=== PATIENT | female | born 1940 | race Caucasian/White ===

== ENCOUNTER 2017-04-29 09:40 | Inpatient (IN) | payer MEDICARE, OTHER ==
[~2017-04-29] VITALS: Ht 162.6 cm; Wt 63.5 kg
[2017-04-29] MEDS ORDERED: IV NS 0.9% 1,000 ML BAG IV ONE ×2 (10:00→11:00)
--- NOTE | 2017-04-29 10:00 | NUR ---
BIBRA 99 C/O BLACK TARRY STOOL X 2-3 DAYS, PATIENT COMPLAINTS OF ABDOMINAL DISCOMFORT AND GENERALIZED WEAKNESS. PATIENT IS AAO3. APPEARS IN NO APPARENT DISTRESS. HOWEVER PATIENT APPEARS WEAK. AFEBRILE. CONNECTED PT TO TELE MONITOR. VSS
[2017-04-29 10:20] LABS: BASOPHILS # (AUTO) 0.3 /CMM (0.0-0.2); BASOPHILS % (AUTO) 1.3 % (0.0-2.0); EOSINOPHILS % (AUTO) 0.1 % (0.0-6.0); HEMATOCRIT 31 % (33-45); HEMOGLOBIN 10.4 g/dL (11.5-14.8); LYMPHOCYTES # (AUTO) 1.5 /CMM (0.8-4.8); LYMPHOCYTES % (AUTO) 6.2 % (20.0-44.0); MEAN CORPUSCULAR HEMOGLOBIN 31 PG (26.0-33.0); MEAN CORPUSCULAR HGB CONC 33 g/dl (31.0-36.0); MEAN CORPUSCULAR VOLUME 94 fL (82-100); MONOCYTES # (AUTO) 1.8 /CMM (0.1-1.30); MONOCYTES % (AUTO) 7.5 % (2.0-12.0); NEUTROPHILS % (AUTO) 84.9 % (43.0-81.0); PLATELET COUNT (AUTO) 505 /CMM (150-450); RDW COEFFICIENT OF VARIATION 17.2 (11.5-15.0); RED BLOOD CELL COUNT(AUTO) 3.33 MIL/uL (4.0-5.2); WHITE BLOOD COUNT (AUTO) 23.6 K/uL (4.3-11.0)
[2017-04-29 10:33] LABS: INR 1.16 (0.87-1.13); PROTHROMBIN TIME 12.1 SECS (9.5-12.7)
[2017-04-29 10:36] LABS: ALANINE AMINOTRANSFERASE 26 U/L (12-78); ALBUMIN 2.2 g/dL (3.4-5.0); ALKALINE PHOSPHATASE 70 U/L (46-116); ASPARTATE AMINOTRANSFERASE 23 U/L (15-37); BILIRUBIN,TOTAL 0.2 mg/dL (0.2-1.0); CALCIUM, SERUM 9.5 mg/dL (8.5-10.1); CARBON DIOXIDE 17 mmol/L (21-32); CHLORIDE 98 mmol/L (98-107); CREATININE 3.4 mg/dL (0.6-1.3); GLUCOSE 287 mg/dL (74-106); LIPASE 201 U/L (73-393); SODIUM SERUM 134 mmol/L (136-145); TOTAL PROTEIN, SERUM 6.8 g/dL (6.4-8.2)
[2017-04-29 10:37] LABS: POTASSIUM 6.4 mmol/L (3.5-5.1); UREA NITROGEN, BLOOD 149 mg/dL (7-18)
[2017-04-29 10:38] LABS: TROPONIN I 0.073 ng/mL (0.00-0.056)
[2017-04-29] MEDS ORDERED: SODIUM BICARBONATE SYR 50 MEQ/50 ML DISP.SYRIN IV ONE (11:00)
[2017-04-29] MEDS ORDERED: CALCIUM CHLORIDE 1,000 MG/10 ML DISP.SYRIN IV ONE (11:00)
[2017-04-29] MEDS ORDERED: SODIUM BICARBONATE SYR 50 MEQ/50 ML DISP.SYRIN ONE (11:40)
[2017-04-29] MEDS ORDERED: CALCIUM CHLORIDE 1,000 MG/10 ML DISP.SYRIN ONE (11:40)
[2017-04-29] MEDS ORDERED: POLY15DR40 EACHEYE (11:44)
[2017-04-29] MEDS ORDERED: ICOS1CAP PO (11:44)
[2017-04-29] MEDS ORDERED: MEMA10TA PO (11:44)
[2017-04-29] MEDS ORDERED: CYAN1TAB42 PO (11:44)
[2017-04-29] MEDS ORDERED: GABA-532 PO (11:44)
[2017-04-29] MEDS ORDERED: ROSU40TA PO (11:44)
[2017-04-29] MEDS ORDERED: ZOLP5TAB7 PO (11:44)
[2017-04-29] MEDS ORDERED: CLOP75TA2 PO (11:44)
[2017-04-29] MEDS ORDERED: PHEN100C4 PO (11:44)
[2017-04-29] MEDS ORDERED: EZET10TA PO (11:44)
[2017-04-29] MEDS ORDERED: FURO20TA4 PO (11:44)
[2017-04-29] MEDS ORDERED: DEXL60CA3 PO (11:44)
[2017-04-29 11:47] LABS: BAND % (MANUAL) 8 % (0.0-5.0); LYMPHOCYTES % (MANUAL) 6 % (16-48); MONOCYTES % (MANUAL) 9 % (0-11.0); NEUTROPHILS % (MANUAL) 77 (42-76)
[2017-04-29] MEDS ORDERED: IV NS 0.9% 1,000 ML IV PRN (11:51)
[2017-04-29] MEDS ORDERED: MAGNESIUM HYDROXIDE 30 ML UDC PO PRN (12:00)
[2017-04-29] MEDS ORDERED: ONDANSETRON HCL/PF 4 MG/2 ML VIAL IVP PRN (12:00)
[2017-04-29] MEDS ORDERED: ZOLPIDEM TARTRATE 5 MG TABLET PO PRN (12:00)
[2017-04-29] MEDS ORDERED: ACETAMINOPHEN 325 MG TABLET PO PRN (12:00)
[2017-04-29] MEDS ORDERED: HYDROCODONE/APAP 5/325MG 1 EACH TABLET PO PRN (12:00)
[2017-04-29] MEDS ORDERED: MAG HYDROX/AL HYDROX/SIMETH 30 ML UDC PO PRN (12:00)
[2017-04-29] MEDS ORDERED: SODIUM POLYSTYRENE SULFONATE 15 G/60 ML BOTTLE PO ONE (12:00)
[2017-04-29] MEDS ORDERED: SODIUM POLYSTYRENE SULFONATE 15 G/60 ML BOTTLE ONE (12:28)
[2017-04-29 13:35] LABS: APPEARANCE,URINE CLOUDY (CLEAR)
[2017-04-29 13:36] LABS: BILIRUBIN,URINE NEGATIVE (NEGATIVE); BLOOD, URINE 2+ Ery/uL (NEGATIVE); COLOR,URINE YELLOW (YELLOW); KETONES,URINE NEGATIVE (NEGATIVE); LEUKOCYTE ESTERASE ,URINE 3+ (NEGATIVE); NITRITE, URINE NEGATIVE (NEGATIVE); PROTEIN,URINE 1+ mg/dl (NEGATIVE); UGLUCOSE NEGATIVE (NEGATIVE); UROBILINOGEN,URINE 0.2 EU/dL (0.2)
[2017-04-29 13:37] LABS: BACTERIA,URINE 2+ /HPF (None Seen); WBC,URINE TOO NUMEROUS TO COUN /HPF (0-3)
[2017-04-29 13:38] LABS: SQUAMOUS EPITHELIAL CELL,UR Few /HPF (None Seen)
[2017-04-29] MEDS ORDERED: INSULIN REGULAR, HUMAN 100 UNIT/ML 10 ML VIAL ONE (13:44)
[2017-04-29] MEDS ORDERED: DEXTROSE 50%-WATER 50 ML DISP.SYRIN ONE (13:44)
[2017-04-29] MEDS ORDERED: INSULIN REGULAR, HUMAN 100 UNIT/ML 10 ML VIAL IV ONE (14:00)
[2017-04-29] MEDS ORDERED: DEXTROSE 50%-WATER 50 ML DISP.SYRIN IV ONE (14:00)
[2017-04-29] MEDS ORDERED: ASPIRIN 300 MG/SUPP.RECT RC ONE (14:00)
[2017-04-29 14:21] LABS: CALCIUM, SERUM 8.7 mg/dL (8.5-10.1); CARBON DIOXIDE 18 mmol/L (21-32); CHLORIDE 105 mmol/L (98-107); GLUCOSE 280 mg/dL (74-106); POTASSIUM 5.5 mmol/L (3.5-5.1); SODIUM SERUM 138 mmol/L (136-145)
[2017-04-29 14:22] LABS: UREA NITROGEN, BLOOD 139 mg/dL (7-18)
[2017-04-29 14:24] LABS: TROPONIN I 0.194 ng/mL (0.00-0.056)
[2017-04-29] MEDS ORDERED: VANCOMYCIN 1 GM in IV D5W 250 ML IV ONE ×2 (14:30→16:30)
[2017-04-29] MEDS ORDERED: PIPERACILLIN /TAZOBACTAM 3.375 G in IV D5W 50 ML IV ONE (14:30)
[2017-04-29 14:37] LABS: THYROID STIMULATING HORMONE 0.97 uIU/mL (0.358-3.74)
[2017-04-29 14:48] LABS: MAGNESIUM 2.7 mg/dL (1.8-2.4); PHOSPHORUS 7.3 mg/dL (2.5-4.9)
--- NOTE | 2017-04-29 15:42 | NUR ---
REPORT GIVEN TO KAROLINA CARDOZO FOR JULIANNA
[2017-04-29] MEDS ORDERED: PANTOPRAZOLE 40 MG VIAL IV ONE (16:00)
[2017-04-29] MEDS ORDERED: ALBUTEROL FS 2.5 MG/3 ML VIAL.NEB NEB ONE (16:00)
--- NOTE | 2017-04-29 16:01 | NUR ---
SMOOTH ADMISSION FROM ER RECVD REPORT FROM TANA TURCIOS. AAO3. H/O CVA LT SIDED WEAKNESS. SBP 92/50 97.7 100% 113 0/10. BUTTOCK WOUND. WET DIAPER. BED IN LOW LOCKED POSITION. DISCUSSED PLAN W/ FAMILY. CALL LIGHT IN REACH. TELE ST 113. WILL CONT TO MONITOR CLOSELY.
[2017-04-29] MEDS ORDERED: FEE PK DOSING 1 MIN EA MC ONE (16:20)
[2017-04-29] MEDS: PHENYTOIN EXTENDED RELEASE 100 MG CAPSULE PO SCH ×2 (16:35→17:00)
[2017-04-29] MEDS: IV NS 0.9% 1,000 ML IV PRN ×2 (16:42→22:13)
[2017-04-29] MEDS: PIPERACILLIN /TAZOBACTAM 2.25 G in IV D5W 50 ML IV SCH ×2 (16:45→23:37)
[2017-04-29] MEDS: POLYVINYL ALCOHOL 15 ML BOTTLE EACHEYE SCH (16:48)
[2017-04-29] MEDS: Z GUARD REMEDY 2 OZ OINT TP PRN (16:48)
[2017-04-29] MEDS: MEMANTINE HCL 5 MG TABLET PO SCH ×2 (16:51→22:04)
--- NOTE | 2017-04-29 16:54 | NUR ---
HOME MEDS CHECKED W/ SON "FELIPE" WHO WILL LOOK TO SEE IF MEDS ARE AT HOME AND LET US KNOW. .
[2017-04-29] MEDS: [UNRECOGNIZED DRUG - OTHER] PO SCH (17:00)
[2017-04-29] MEDS: CYANOCOBALAMIN PO SCH (17:00)
[2017-04-29] MEDS ORDERED: Icosapent Ethyl (Vascepa) 1 GM PO SCH (17:00)
[2017-04-29] MEDS: PYRIDOXINE PO SCH (17:00)
[2017-04-29 17:15] VITALS: BP 92/50
[2017-04-29 17:52] LABS: HEMATOCRIT 23 % (33-45); HEMOGLOBIN 7.3 g/dL (11.5-14.8); MEAN CORPUSCULAR HEMOGLOBIN 30 PG (26.0-33.0); MEAN CORPUSCULAR HGB CONC 32 g/dl (31.0-36.0); MEAN CORPUSCULAR VOLUME 95 fL (82-100); PLATELET COUNT (AUTO) 340 /CMM (150-450); RED BLOOD CELL COUNT(AUTO) 2.41 MIL/uL (4.0-5.2); WHITE BLOOD COUNT (AUTO) 16.1 K/uL (4.3-11.0)
--- NOTE | 2017-04-29 19:05 | NUR ---
RN CLOSING NOTE PT RESTING COMFORTABLY. SINUS TACHY 110. SLEEPING. IV VANCO INFUSING AT PRESENT RAC 20G PATENT INTACT. SBP STABLE IN 90'S. CALL LIGHT IN REACH. BED IN LOW LOCKED POSITION. WILL ENDORSE TO ROCHELLE RN.
--- NOTE | 2017-04-29 19:30 | NUR ---
RN OPENING NOTE RECEIVED PATIENT IN BED, ALERT, VERBALLY RESPONSIVE. LEFT SIDE WEAKNESS NOTED, SINUS TACHYCARDIA, PATIENT IS AFIBRILE, NO ACTIVE BLEEDING NOTED, NO SEIZURE, NO ACUTE RESPIRATORY DISTRESS, ON 2 L/MIN VIA NASAL CANULA, IV SITE ON THE RAC WITH NS 250 ML/HR IS INTACT (GAUGE 20), CALL LIGHT WITHIN REACH, REPOSITION PATIENT COMFORTABLE, PATIENT IS CLEAN AND DRY, WILL CONTINUE TO MONITOR
[2017-04-29 22:00] VITALS: BP 99/51
[2017-04-29] MEDS: ATORVASTATIN 40 MG TABLET PO SCH (22:04)
[2017-04-29] MEDS: GABAPENTIN 100 MG CAPSULE PO SCH (22:04)
[2017-04-30] VITALS (12 sets, daily range): BP systolic 88–127; BP diastolic 28–66
[2017-04-30] MEDS: IV NS 0.9% 1,000 ML IV PRN ×2 (03:08→10:52)
[2017-04-30] MEDS: PIPERACILLIN /TAZOBACTAM 2.25 G in IV D5W 50 ML IV SCH ×3 (05:56→18:18)
--- NOTE | 2017-04-30 06:36 | NUR ---
RN CLOSING NOTE PATIENT IS ALERT, ORIENTED TO NAME,, PLACE (SPEAKS HAITIAN ONLY) . NO S/S OF DISTRESS. NO ACTIVE BLEEDING NOTED, NO SEIZURE, NO ACUTE RESPIRATORY DISTRESS, ON 2 L/MIN VIA NASAL CANULA, IV SITE ON THE RAC IS INTACT (GAUGE 20), RECEIVED ANTIBIOTIC PER MD ORDER.CALL LIGHT WITHIN REACH, REPOSITION PATIENT COMFORTABLE, PATIENT IS CLEAN AND DRY, SIDE RAILS X 2, ALL DUE MEDS GIVEN, ALL NEEDS ATTENDED
[2017-04-30] MEDS ORDERED: PANTOPRAZOLE 40 MG TABLET.DR PO SCH (07:30)
[2017-04-30 07:39] LABS: BASOPHILS % (AUTO) 0.1 % (0.0-2.0); EOSINOPHILS # (AUTO) 0.1 /CMM (0.0-0.7); EOSINOPHILS % (AUTO) 0.7 % (0.0-6.0); LYMPHOCYTES # (AUTO) 0.5 /CMM (0.8-4.8); LYMPHOCYTES % (AUTO) 3.8 % (20.0-44.0); MEAN CORPUSCULAR HEMOGLOBIN 32 PG (26.0-33.0); MEAN CORPUSCULAR HGB CONC 34 g/dl (31.0-36.0); MEAN CORPUSCULAR VOLUME 95 fL (82-100); MONOCYTES # (AUTO) 0.9 /CMM (0.1-1.30); MONOCYTES % (AUTO) 7.3 % (2.0-12.0); NEUTROPHILS # (AUTO) 10.8 /CMM (1.8-8.9); NEUTROPHILS % (AUTO) 88.1 % (43.0-81.0); PLATELET COUNT (AUTO) 285 /CMM (150-450); RDW COEFFICIENT OF VARIATION 18.1 (11.5-15.0); RED BLOOD CELL COUNT(AUTO) 2.02 MIL/uL (4.0-5.2); WHITE BLOOD COUNT (AUTO) 12.3 K/uL (4.3-11.0)
[2017-04-30 07:48] LABS: HEMATOCRIT 19 % (33-45); HEMOGLOBIN 6.4 g/dL (11.5-14.8)
[2017-04-30 07:58] LABS: CALCIUM, SERUM 7.7 mg/dL (8.5-10.1); CARBON DIOXIDE 19 mmol/L (21-32); CHLORIDE 114 mmol/L (98-107); CREATININE 2.3 mg/dL (0.6-1.3); GLUCOSE 196 mg/dL (74-106); MAGNESIUM 1.9 mg/dL (1.8-2.4); PHOSPHORUS 4.4 mg/dL (2.5-4.9); POTASSIUM 4.2 mmol/L (3.5-5.1); SODIUM SERUM 145 mmol/L (136-145)
[2017-04-30 08:04] LABS: UREA NITROGEN, BLOOD 103 mg/dL (7-18)
[2017-04-30] MEDS: POLYVINYL ALCOHOL 15 ML BOTTLE EACHEYE SCH ×2 (08:42→17:00)
[2017-04-30] MEDS: PHENYTOIN EXTENDED RELEASE 100 MG CAPSULE PO SCH ×3 (08:42→17:43)
--- NOTE | 2017-04-30 08:50 | NUR ---
RN NOTE PAGED DR MABRY AT 0894 ABOUT HGB 6.4. HE WILL SEE THE PT. WILL MONITOR THE PT CLOSELY.
[2017-04-30] MEDS ORDERED: CLOPIDOGREL BISULFATE 75 MG TABLET PO SCH (09:00)
[2017-04-30] MEDS ORDERED: EZETIMIBE 10 MG TABLET PO SCH (09:00)
[2017-04-30] MEDS: CYANOCOBALAMIN PO SCH ×2 (09:00→17:43)
[2017-04-30] MEDS: [UNRECOGNIZED DRUG - OTHER] PO SCH ×2 (09:00→17:43)
[2017-04-30] MEDS ORDERED: Medication Not On Formulary EA (Rosuvastatin Calcium (Crestor) 40 MG) PO SCH (09:00)
[2017-04-30] MEDS: PYRIDOXINE PO SCH ×2 (09:00→17:43)
[2017-04-30 09:14] LABS: BAND % (MANUAL) 10 % (0.0-5.0); LYMPHOCYTES % (MANUAL) 3 % (16-48); MONOCYTES % (MANUAL) 3 % (0-11.0); NEUTROPHILS % (MANUAL) 84 (42-76)
[2017-04-30] MEDS: PANTOPRAZOLE 40 MG VIAL IV SCH ×2 (10:56→20:59)
--- NOTE | 2017-04-30 14:15 | NUR ---
RN NOTE PT HAD 1 UNIT OF PRBC, TOLERATED WELL, NO TRANSFUSION REACTION NOTED. PT HAD TWO BLACK COFFEE GROUND LOOSE STOOLS. PT IS VERY THIRSTY AND CONSTANTLY ASKING FOR WATER. PT NOTED TO HAVE A LUMP IN RIGHT LOWER QUADRANT ABDOMEN, DR MABRY MADE AWARE. NO NEW ORDERS AT THIS TIME, WILL CONTINUE TO MONITOR.
[2017-04-30] MEDS ORDERED: DESMOPRESSIN 20 MCG in IV NS 0.9% 50 ML IV ONE (15:30)
[2017-04-30] MEDS: LACTOBACILLUS RHAMNOSUS GG 1 EACH CAP.SPRINK PO SCH (17:43)
[2017-04-30 18:05] LABS: APPEARANCE,URINE CLOUDY (CLEAR); BILIRUBIN,URINE NEGATIVE (NEGATIVE); BLOOD, URINE 3+ Ery/uL (NEGATIVE); COLOR,URINE YELLOW (YELLOW); KETONES,URINE NEGATIVE (NEGATIVE); LEUKOCYTE ESTERASE ,URINE 3+ (NEGATIVE); NITRITE, URINE NEGATIVE (NEGATIVE); PH,URINE 5.5 (5.0-8.0); PROTEIN,URINE TRACE mg/dl (NEGATIVE); UGLUCOSE NEGATIVE (NEGATIVE); UROBILINOGEN,URINE 0.2 EU/dL (0.2)
[2017-04-30 18:15] LABS: BACTERIA,URINE Many /HPF (None Seen); SQUAMOUS EPITHELIAL CELL,UR Many /HPF (None Seen); WBC,URINE TOO NUMEROUS TO COUN /HPF (0-3)
[2017-04-30 18:18] LABS: CREATININE, URINE 18.3 MG/DL (30.0-125.0); URINE TOTAL PROTEIN 45.5 mg/dL (0-11.9)
[2017-04-30 18:44] LABS: EOSINOPHIL,URINE None Seen
--- NOTE | 2017-04-30 19:07 | NUR ---
RN NOTE SPOKE WITH DR GARY HE ORDERED EGD, AND TO CHECK H/H AND TO TRANSFUSE WITH BLOOD IF HGB<8.0. PT REMAINED STABLE, VS STABLE, DENIES PAIN, ALL MEDS GIVEN PRESCRIBED, NEEDS MET, KEPT CLEAN AND DRY, CALL LIGHT WITHIN REACH, WILL ENDORSE TO SHED HAND.
[2017-04-30 19:15] LABS: HEMOGLOBIN 7.9 g/dL (11.5-14.8)
[2017-04-30] MEDS: GABAPENTIN 100 MG CAPSULE PO SCH (21:00)
[2017-04-30] MEDS: ATORVASTATIN 40 MG TABLET PO SCH (21:00)
[2017-04-30] MEDS: MEMANTINE HCL 5 MG TABLET PO SCH (21:00)
--- NOTE | 2017-04-30 21:08 | NUR ---
RN:TD: PT RECEIVED IN BED, CONFUSED ENGLISH SPEAKING ONLY. ENGLISH SPEAKING SCHOOL LUNCH MANAGER AT THE BEDSIDE FOR TRANSLATION. HGB RECHECKED PER DR GARY'S ORDER AND WILL BE GIVEN 1 UNIT PRBC RESULT IS 7.9 AND SPECIFIED PARAMETERS INDICATE TO KEEP HGB GREATER THAN 8. ORDER PLACED FOR 1 UNIT PRBC FOR ACTIVE GI BLEED. CONSENT FOR EDG WITNESSED BY TWO NURSES. BRANDON PT SON PROVIDED CONSENT. NO APPARENT DISTRESS NOTED AT THIS TIME. WILL CONTINUE TO MONITOR CLOSELY. ASPIRATION AND FALL PRECAUTIONS IN PLACE.
[2017-05-01] VITALS (8 sets, daily range): BP systolic 83–185; BP diastolic 32–97
[2017-05-01] MEDS: PIPERACILLIN /TAZOBACTAM 2.25 G in IV D5W 50 ML IV SCH ×5 (00:03→23:16)
[2017-05-01] MEDS: IV NS 0.9% 1,000 ML IV PRN (04:28)
[2017-05-01] MEDS ORDERED: VANCOMYCIN 0.75 GM in IV D5W 250 ML IV SCH ×2 (05:00→12:30)
[2017-05-01 06:26] LABS: EOSINOPHILS # (AUTO) 0.1 /CMM (0.0-0.7); EOSINOPHILS % (AUTO) 0.5 % (0.0-6.0); HEMATOCRIT 27 % (33-45); HEMOGLOBIN 8.8 g/dL (11.5-14.8); LYMPHOCYTES # (AUTO) 0.4 /CMM (0.8-4.8); LYMPHOCYTES % (AUTO) 2.9 % (20.0-44.0); MEAN CORPUSCULAR HEMOGLOBIN 31 PG (26.0-33.0); MEAN CORPUSCULAR HGB CONC 33 g/dl (31.0-36.0); MEAN CORPUSCULAR VOLUME 92 fL (82-100); MONOCYTES # (AUTO) 0.9 /CMM (0.1-1.30); MONOCYTES % (AUTO) 7.2 % (2.0-12.0); NEUTROPHILS # (AUTO) 11.3 /CMM (1.8-8.9); NEUTROPHILS % (AUTO) 89.4 % (43.0-81.0); PLATELET COUNT (AUTO) 219 /CMM (150-450); RED BLOOD CELL COUNT(AUTO) 2.88 MIL/uL (4.0-5.2); WHITE BLOOD COUNT (AUTO) 12.7 K/uL (4.3-11.0)
[2017-05-01 06:43] LABS: ALANINE AMINOTRANSFERASE 56 U/L (12-78); ALBUMIN 1.6 g/dL (3.4-5.0); ALKALINE PHOSPHATASE 58 U/L (46-116); ASPARTATE AMINOTRANSFERASE 63 U/L (15-37); BILIRUBIN,TOTAL 0.5 mg/dL (0.2-1.0); CALCIUM, SERUM 7.7 mg/dL (8.5-10.1); CARBON DIOXIDE 19 mmol/L (21-32); CHLORIDE 108 mmol/L (98-107); CREATININE 1.7 mg/dL (0.6-1.3); GLUCOSE 226 mg/dL (74-106); MAGNESIUM 1.6 mg/dL (1.8-2.4); PHOSPHORUS 3.3 mg/dL (2.5-4.9); POTASSIUM 3.6 mmol/L (3.5-5.1); SODIUM SERUM 140 mmol/L (136-145); TOTAL PROTEIN, SERUM 5.1 g/dL (6.4-8.2); UREA NITROGEN, BLOOD 62 mg/dL (7-18)
--- NOTE | 2017-05-01 07:20 | NUR ---
RN OPENING NOTES RECV'D REPORT FROM NOC RN. PT SLEEPING AROUSABLE. 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 AAO2. TELE ST 110. 2LNC 98%. NPO X MEDS FOR EGD POS OB STOOL. TRANSFUSE IF HGB <8 HGB IS 8.8. ASHU MIDLINE, AIRAM 20G NS @100ML/HR. BED IN LOW LOCKED POSITION. CALL LIGHT IN REACH. WILL CONT TO MONITOR CLOSELY.
[2017-05-01 08:30] LABS: CREATINE KINASE, TOTAL 636 U/L (26-192)
[2017-05-01 08:31] LABS: TROPONIN I 0.103 ng/mL (0.00-0.056)
[2017-05-01] MEDS: PANTOPRAZOLE 40 MG VIAL IV SCH ×2 (08:51→21:59)
[2017-05-01 08:52] LABS: CREATINE KINASE MB 10.5 ng/mL (0-3.6)
[2017-05-01] MEDS: LACTOBACILLUS RHAMNOSUS GG 1 EACH CAP.SPRINK PO SCH ×2 (08:52→16:13)
[2017-05-01] MEDS: PHENYTOIN EXTENDED RELEASE 100 MG CAPSULE PO SCH ×3 (08:52→16:13)
[2017-05-01] MEDS: POLYVINYL ALCOHOL 15 ML BOTTLE EACHEYE SCH ×2 (08:53→16:12)
[2017-05-01] MEDS: CYANOCOBALAMIN PO SCH ×2 (08:53→16:13)
[2017-05-01] MEDS: PYRIDOXINE PO SCH ×2 (08:53→16:13)
[2017-05-01] MEDS: [UNRECOGNIZED DRUG - OTHER] PO SCH ×2 (08:53→16:13)
--- NOTE | 2017-05-01 09:19 | NUR ---
SBP IN 80S CHECKED ON LEFT FOREARM DUE TO UPPER ARM IV AND ASHU MIDLINE. DENIES DIZZINESS. WARM DRY SKIN.
[2017-05-01 09:34] LABS: BAND % (MANUAL) 9 % (0.0-5.0); LYMPHOCYTES % (MANUAL) 2 % (16-48); MONOCYTES % (MANUAL) 3 % (0-11.0); NEUTROPHILS % (MANUAL) 86 (42-76)
--- NOTE | 2017-05-01 10:48 | NUR ---
REPORT GIVEN TO OR NURSE. PT SENT FOR EGD. SON "BRANDON" AT BEDSIDE.
[2017-05-01] MEDS ORDERED: Magnesium 1GM/D5W 100ML PREMIX 100 ML IV SCH (11:16)
--- NOTE | 2017-05-01 12:30 | NUR ---
RETURNED FROM EGD. NON BLEEDING POLYP. PLAN FOR COLONOSCOPY 05/03.
--- NOTE | 2017-05-01 18:37 | NUR ---
RN CLOSING NOTE HOB ELEVATED. ATE ABOUT 10% OF FOOD OFFERED. ABX INFUSED. REPLETED MAG IV. ASHU MIDLINE INTACT PATENT INFUSING NS @50ML HR. BM X1. INC URINE X 3 BRIEFS. CALL LIGHT IN REACH. BED IN LOW LOCKED POSITION. TELE SR 90S. WILL ENDORSE TO ROCHELLE RN.
[2017-05-01] MEDS: ATORVASTATIN 40 MG TABLET PO SCH (22:00)
[2017-05-01] MEDS: GABAPENTIN 100 MG CAPSULE PO SCH (22:00)
[2017-05-01] MEDS: MEMANTINE HCL 5 MG TABLET PO SCH (22:00)
[2017-05-02 04:00] VITALS: BP 121/54
[2017-05-02] MEDS: PIPERACILLIN /TAZOBACTAM 2.25 G in IV D5W 50 ML IV SCH ×4 (06:38→23:54)
[2017-05-02 06:45] LABS: EOSINOPHILS # (AUTO) 0.1 /CMM (0.0-0.7); EOSINOPHILS % (AUTO) 0.7 % (0.0-6.0); HEMATOCRIT 28 % (33-45); HEMOGLOBIN 9.2 g/dL (11.5-14.8); LYMPHOCYTES # (AUTO) 0.4 /CMM (0.8-4.8); LYMPHOCYTES % (AUTO) 3.9 % (20.0-44.0); MEAN CORPUSCULAR HEMOGLOBIN 31 PG (26.0-33.0); MEAN CORPUSCULAR HGB CONC 33 g/dl (31.0-36.0); MEAN CORPUSCULAR VOLUME 92 fL (82-100); MONOCYTES # (AUTO) 0.8 /CMM (0.1-1.30); MONOCYTES % (AUTO) 6.8 % (2.0-12.0); NEUTROPHILS % (AUTO) 88.6 % (43.0-81.0); PLATELET COUNT (AUTO) 198 /CMM (150-450); RED BLOOD CELL COUNT(AUTO) 2.99 MIL/uL (4.0-5.2); WHITE BLOOD COUNT (AUTO) 11.3 K/uL (4.3-11.0)
[2017-05-02 07:03] LABS: ALANINE AMINOTRANSFERASE 63 U/L (12-78); ALBUMIN 1.6 g/dL (3.4-5.0); ALKALINE PHOSPHATASE 64 U/L (46-116); ASPARTATE AMINOTRANSFERASE 63 U/L (15-37); BILIRUBIN,TOTAL 0.4 mg/dL (0.2-1.0); CALCIUM, SERUM 7.8 mg/dL (8.5-10.1); CARBON DIOXIDE 20 mmol/L (21-32); CHLORIDE 111 mmol/L (98-107); CREATININE 1.4 mg/dL (0.6-1.3); GLUCOSE 156 mg/dL (74-106); MAGNESIUM 1.9 mg/dL (1.8-2.4); PHOSPHORUS 2.4 mg/dL (2.5-4.9); SODIUM SERUM 142 mmol/L (136-145); TOTAL PROTEIN, SERUM 5.1 g/dL (6.4-8.2); UREA NITROGEN, BLOOD 39 mg/dL (7-18)
--- NOTE | 2017-05-02 08:00 | NUR ---
RN NOTES RECEIVED PATIENT IN THE BED GHANAIAN SPEAKER, A/A/O X2, TOTAL CARE, IV MIDLINE RIGHT UPPER ARM INFUSING NS 100 ML/HR INTACT, ENCOURAGED TO EXPRESS FEELINGS AND CONCERNS, V/S TAKE, NEEDS ATTENDED AND ANTICIPATED, ASSIST PATIENT TURN AND REPOSITION, PATIENT HAS NO C/O PAIN AT THIS TIME, CALL LIGHT WITHIN TO REACH, SAFETY PRECAUTION MAINTAINED ALL THE TIME. CONTINUED MONITORING.
[2017-05-02] MEDS: CYANOCOBALAMIN PO SCH ×2 (10:51→17:51)
[2017-05-02] MEDS: POTASSIUM CHLORIDE 20 MEQ TAB.PRT.SR PO SCH ×3 (10:51→12:15)
[2017-05-02] MEDS: LACTOBACILLUS RHAMNOSUS GG 1 EACH CAP.SPRINK PO SCH ×2 (10:51→17:51)
[2017-05-02] MEDS: [UNRECOGNIZED DRUG - OTHER] PO SCH ×2 (10:51→17:51)
[2017-05-02] MEDS: PYRIDOXINE PO SCH ×2 (10:51→17:51)
[2017-05-02] MEDS: PHENYTOIN EXTENDED RELEASE 100 MG CAPSULE PO SCH ×3 (10:51→17:51)
[2017-05-02] MEDS: PANTOPRAZOLE 40 MG VIAL IV SCH ×2 (10:51→21:09)
[2017-05-02] MEDS: BISACODYL (5 MG) 5 MG TABLET.DR PO SCH (10:53)
[2017-05-02] MEDS: POLYVINYL ALCOHOL 15 ML BOTTLE EACHEYE SCH ×2 (10:57→17:52)
[2017-05-02] MEDS ORDERED: K PHOS NEUTRAL 250 MG TABLET PO ONE (12:00)
--- NOTE | 2017-05-02 13:00 | NUR ---
RN NOTES PATIENT IN THE BED, NO ACUTE DISTRESS, ASSIST EATING, MED COMPLIANT, V/S STABLE, NEEDS ATTENDED AND ANTICIPATED, ASSIST TURN AND REPOSITION Q 2 HR. CALL LIGHT WITHIN TO REACH, SAFETY PRECAUTION MAINTAINED ALL THE TIME. SON NEXT TO THE BED.
--- NOTE | 2017-05-02 18:48 | NUR ---
RN NOTES PATIENT IN THE BED, NO RESPIRATORY DISTRESS, NO C/O PAIN AT THIS TIME, PATIENT MED COMPLIANT, V/S STABLE, IV MIDLINE ON RIGHT UPPER ROZ INTACT, V/S STABLE, PATIENT POOR EATER, ALSO REFUSED DINNER, NEEDS ATTENDED AND ANTICIPATED. CALL LIGHT WITHIN TO REACH, CONTINUED MONITORING. ENDORSED ONCOMING NURSE FOR CONTINUATION OF CARE.
--- NOTE | 2017-05-02 20:10 | NUR ---
RN NOTES PATIENT ASLEEP WELL ON BED. NO ACUTE RESP DISTRESS. TOLERATED O2 2LPM VIA NC AOX 2-3 PERUVIAN SPEAKING BUT UNDERSTAND A LITTLE BIT PERSIAN. WITH IV SITE ON ASHU MIDLINE INTACT AND PATENT. WARMTH TO TOUCH BUT AFEBRILE. ENCOURAGED TO EAT DINNER MEAL THAT WAS AT BEDSIDE. PT REFUSED TO EAT. RISK AND BENEFITS EXPLAINED, INEFFECTIVE. NO ACTIVE BLEEDING NOTED. DENIES ANY CHEST PAIN. OFFLOADED EXT WITH PILLOWS/ REDUCED PRESSURE TO BONY PROMINENCE AREA. CALL LIGHT KEPT WITHIN EASY REACH ENCOURAGED TO USED WHEN NEED ASSISTANCE. WILL CONTINUE TO MONITOR.
[2017-05-02] MEDS ORDERED: BISACODYL (5 MG) 5 MG TABLET.DR PO PRN (21:00)
[2017-05-02] MEDS: GABAPENTIN 100 MG CAPSULE PO SCH (21:09)
[2017-05-02] MEDS: ATORVASTATIN 40 MG TABLET PO SCH (21:09)
[2017-05-02] MEDS: MEMANTINE HCL 5 MG TABLET PO SCH (21:09)
[2017-05-03 04:00] VITALS: BP 158/68
[2017-05-03] MEDS: PIPERACILLIN /TAZOBACTAM 2.25 G in IV D5W 50 ML IV SCH ×4 (06:13→23:02)
--- NOTE | 2017-05-03 06:40 | NUR ---
RN NOTES PT ASLEEP WELL ON BED. BREATHING EVEN AND UNLABORED. DENIES PAIN. AFEBRILE. REMAINED ALERT ORIENTED X 2-3 VERBALIZED FEELINGS AND NEEDS. NO SIGNIFICANT CHANGE OF CONDITION NOTED. TOLERATED IV ATB WITHOUT ASE SHOWS. AFEBRILE. KEPT CLEAN AND DRY. OFFLOADED EXT WITH PILLOWS. REDUCED PRESSURE TO BONY PROMINENCE AREA. T/R PROTOCOL AND PRN. BED BATH DONE PHOTO TAKEN ON SKIN ISSUES. ALL DUE MEDICINE TOLERATED WELL. WILL ENDORSED CONTINUITY OF CARE TO AM NURSE.
[2017-05-03 08:00] VITALS: BP 132/64
[2017-05-03 08:02] LABS: CALCIUM, SERUM 7.8 mg/dL (8.5-10.1); CARBON DIOXIDE 20 mmol/L (21-32); CHLORIDE 114 mmol/L (98-107); CREATININE 1.3 mg/dL (0.6-1.3); GLUCOSE 147 mg/dL (74-106); POTASSIUM 3.5 mmol/L (3.5-5.1); SODIUM SERUM 145 mmol/L (136-145); UREA NITROGEN, BLOOD 24 mg/dL (7-18)
[2017-05-03] MEDS ORDERED: PEG 3350/NA SULF,BICARB,CL/KCL 4,000 ML BOTTLE PO ONE (09:00)
[2017-05-03] MEDS: POLYVINYL ALCOHOL 15 ML BOTTLE EACHEYE SCH ×2 (09:00→17:00)
--- NOTE | 2017-05-03 10:00 | NUR ---
RN NOTE PT REFUSED TO DRINK GOLYTELY BOWEL PREP. RISK AND BENEFITS EXPLAINED STILL REFUSED. WILL NOTIFY DR GARY. WILL MONITOR PT.
[2017-05-03] MEDS: LACTOBACILLUS RHAMNOSUS GG 1 EACH CAP.SPRINK PO SCH ×2 (10:23→17:19)
[2017-05-03] MEDS: [UNRECOGNIZED DRUG - OTHER] PO SCH ×2 (10:23→17:18)
[2017-05-03] MEDS: PYRIDOXINE PO SCH ×2 (10:23→17:18)
[2017-05-03] MEDS: CYANOCOBALAMIN PO SCH ×2 (10:23→17:18)
[2017-05-03] MEDS: PANTOPRAZOLE 40 MG VIAL IV SCH ×2 (10:24→21:27)
[2017-05-03] MEDS: BISACODYL (5 MG) 5 MG TABLET.DR PO SCH (10:24)
[2017-05-03] MEDS: PHENYTOIN EXTENDED RELEASE 100 MG CAPSULE PO SCH ×3 (10:24→17:18)
[2017-05-03 12:09] LABS: *SPE A/G RATIO 0.7 (0.7-1.7); *SPE ALBUMIN 1.9 g/dL (2.9-4.4); *SPE ALPHA-1-GLOBULIN 0.4 g/dL (0.0-0.4); *SPE BETA GLOBULIN 0.6 g/dL (0.7-1.3); *SPE GLOBULIN, TOTAL 2.7 g/dL (2.2-3.9); *SPE M-SPIKE Not Observed g/dL (Not Observed); *SPEGAMMA GLOBULIN 0.7 g/dL (0.4-1.8)
[2017-05-03 15:55] VITALS: BP 134/64
[2017-05-03 16:00] VITALS: BP 134/61
[2017-05-03] MEDS ORDERED: POTASSIUM CHLORIDE 20 MEQ POWDER PACKET GT ONE (16:00)
[2017-05-03] MEDS ORDERED: BISACODYL (5 MG) 5 MG TABLET.DR PO ONE (16:00)
--- NOTE | 2017-05-03 19:20 | NUR ---
MS RN NURSE RECEIVED REPORT AND PATIENT FROM PREVIOUS SHIFT RN. PATIENT IS STABLE WITH NO SIGNS OF DISTRESS.
[2017-05-03 20:00] VITALS: BP 159/73
[2017-05-03] MEDS: ATORVASTATIN 40 MG TABLET PO SCH (21:26)
[2017-05-03] MEDS: MEMANTINE HCL 5 MG TABLET PO SCH (21:26)
[2017-05-03] MEDS: GABAPENTIN 100 MG CAPSULE PO SCH (21:26)
[2017-05-04 04:00] VITALS: BP_SYST 174; BP_SYST 90; BP_DIAS 62; BP_DIAS 73
[2017-05-04] MEDS: PIPERACILLIN /TAZOBACTAM 2.25 G in IV D5W 50 ML IV SCH ×4 (05:34→23:29)
--- NOTE | 2017-05-04 07:19 | NUR ---
RN CLOSING NOTES. PATIENT STABLE. GAVE REPORT AND PATIENT TO SATINDER TURCIOS MORNING SHIFT.
[2017-05-04 07:58] LABS: BASOPHILS % (AUTO) 0.1 % (0.0-2.0); EOSINOPHILS # (AUTO) 0.1 /CMM (0.0-0.7); EOSINOPHILS % (AUTO) 1.5 % (0.0-6.0); HEMATOCRIT 31 % (33-45); HEMOGLOBIN 10.4 g/dL (11.5-14.8); LYMPHOCYTES # (AUTO) 0.5 /CMM (0.8-4.8); LYMPHOCYTES % (AUTO) 5.3 % (20.0-44.0); MEAN CORPUSCULAR HEMOGLOBIN 32 PG (26.0-33.0); MEAN CORPUSCULAR HGB CONC 34 g/dl (31.0-36.0); MEAN CORPUSCULAR VOLUME 95 fL (82-100); MONOCYTES # (AUTO) 0.9 /CMM (0.1-1.30); NEUTROPHILS # (AUTO) 7.6 /CMM (1.8-8.9); NEUTROPHILS % (AUTO) 83.1 % (43.0-81.0); PLATELET COUNT (AUTO) 213 /CMM (150-450); RDW COEFFICIENT OF VARIATION 17.4 (11.5-15.0); RED BLOOD CELL COUNT(AUTO) 3.28 MIL/uL (4.0-5.2); WHITE BLOOD COUNT (AUTO) 9.2 K/uL (4.3-11.0)
[2017-05-04 08:00] VITALS: BP 151/92
[2017-05-04 08:24] LABS: CARBON DIOXIDE 21 mmol/L (21-32); CHLORIDE 115 mmol/L (98-107); CREATININE 1.3 mg/dL (0.6-1.3); GLUCOSE 145 mg/dL (74-106); MAGNESIUM 1.7 mg/dL (1.8-2.4); PHOSPHORUS 2.4 mg/dL (2.5-4.9); POTASSIUM 3.7 mmol/L (3.5-5.1); SODIUM SERUM 146 mmol/L (136-145); UREA NITROGEN, BLOOD 16 mg/dL (7-18)
[2017-05-04] MEDS: Magnesium 1GM/D5W 100ML PREMIX 100 ML IV SCH ×2 (11:04→13:47)
[2017-05-04] MEDS: POLYVINYL ALCOHOL 15 ML BOTTLE EACHEYE SCH ×2 (11:05→18:29)
[2017-05-04] MEDS: PANTOPRAZOLE 40 MG VIAL IV SCH ×2 (11:05→21:32)
[2017-05-04] MEDS: CYANOCOBALAMIN PO SCH ×2 (11:51→18:28)
[2017-05-04] MEDS: PYRIDOXINE PO SCH ×2 (11:51→18:28)
[2017-05-04] MEDS: BISACODYL (5 MG) 5 MG TABLET.DR PO SCH (11:51)
[2017-05-04] MEDS: LACTOBACILLUS RHAMNOSUS GG 1 EACH CAP.SPRINK PO SCH ×2 (11:51→18:28)
[2017-05-04] MEDS: PHENYTOIN EXTENDED RELEASE 100 MG CAPSULE PO SCH ×3 (11:51→18:28)
[2017-05-04] MEDS: [UNRECOGNIZED DRUG - OTHER] PO SCH ×2 (11:51→18:28)
[2017-05-04 13:11] LABS: PTH, INTACT 35 pg/mL (15-65)
[2017-05-04] MEDS ORDERED: K PHOS NEUTRAL 250 MG TABLET PO ONE (13:30)
[2017-05-04 16:00] VITALS: BP 145/69
--- NOTE | 2017-05-04 18:00 | NUR ---
phosphorous and mg. replacements today,sons in to visit. plans for colonoscopy today. had 2 very loose brown stools today.
--- NOTE | 2017-05-04 19:00 | NUR ---
RN NOTES IN BED RESTING COMFORTABLY. A/O X 2, PT IN STABLE CONDITION, NO S/S OF DISTRESS. SAFETY MEASURES ARE IN PLACE, CALL LIGHT IS IN REACH. WILL CONTINUE TO MONITOR.
[2017-05-04 20:00] VITALS: BP_SYST 150; BP_SYST 162; BP_DIAS 66; BP_DIAS 79
[2017-05-04] MEDS: ATORVASTATIN 40 MG TABLET PO SCH (21:32)
[2017-05-04] MEDS: GABAPENTIN 100 MG CAPSULE PO SCH (21:32)
[2017-05-04] MEDS: MEMANTINE HCL 5 MG TABLET PO SCH (21:32)
[2017-05-05 04:00] VITALS: BP 91/58
[2017-05-05] MEDS: PIPERACILLIN /TAZOBACTAM 2.25 G in IV D5W 50 ML IV SCH ×4 (05:27→23:55)
--- NOTE | 2017-05-05 06:46 | NUR ---
MS RN CLOSING NOTES ASLEEP AND EASILY AWAKEN, HOB ELEVATED, RESPIRATIONS EVEN AND UNLABORED.ON 2LPM VIA NC 02 SAT AT 97% IN STABLE CONDITION. NOT IN S/S DISTRESS. KEPT CLEAN AND DRY AND COMFORTABLE, MAINTAINS NPO AT MIDNIGHT. FOR COLONOSCOPY TODAY. ALL NURSING CARE RENDERED. NEEDS ATTENDED AND ANTICIPATED, FREQUENT VISUAL CHECK DONE FOR SAFETY EVERY 2 HOURS. ASSISTED REPOSITION EVERY 2 HOURS FOR SKIN MGT. TWE X 2 ORDERED, CLEAR OF BOWEL MOVEMENT. GOOD SKIN CARE PROVIDED, ON LOW BED AT ALL TIMES TO ENSURE SAFETY. SAFE HAZARD FREE ENVIRONMENT PROVIDED. CALL LIGHT WITHIN EASY TO REACH. WILL ENDORSE NEXT SHIFT CONTINUITY OF CARE.
--- NOTE | 2017-05-05 07:40 | NUR ---
RN NOTES RECEIVED PT. PT IS SLEEPING IN BED. PT IS ON 2L O2 VIA NC. NO S/S OF RESPIRATORY DISTRESS OR SOB. PT DOES NOT APPEAR TO BE IN PAIN AT THIS MOMENT. COLONOSCOPY TO BE PERFORMED TODAY 05/05/17. ALL CONSENTS AND CHECKLIST SIGNED AND COMPLETED. PER INFORMATICA MDM DEVELOPER REPORT, X2 TAP WATER ENEMAS PERFORMED ON PT UNTIL BOWEL WAS CLEAR. PT PLACED ON NPO AT MIDNIGHT, PO AM MEDICATIONS HELD. IV ACCESS LOCATED ON RIGHT UPPER ARM, MIDLINE SL. BED LOWERED TO LOWEST POSITION, SIDE RAILS UP X 2. SAFETY MEASURES IN PLACE, CALL LIGHT WITHIN REACH. WILL CONTINUE TO MONITOR.
[2017-05-05 08:00] VITALS: BP 136/74
[2017-05-05] MEDS: PANTOPRAZOLE 40 MG VIAL IV SCH (08:23)
[2017-05-05] MEDS: POLYVINYL ALCOHOL 15 ML BOTTLE EACHEYE SCH ×2 (08:24→17:57)
[2017-05-05] MEDS: CYANOCOBALAMIN PO SCH ×2 (08:28→17:48)
[2017-05-05] MEDS: LACTOBACILLUS RHAMNOSUS GG 1 EACH CAP.SPRINK PO SCH ×2 (08:28→17:48)
[2017-05-05] MEDS: BISACODYL (5 MG) 5 MG TABLET.DR PO SCH (08:28)
[2017-05-05] MEDS: PYRIDOXINE PO SCH ×2 (08:28→17:48)
[2017-05-05] MEDS: [UNRECOGNIZED DRUG - OTHER] PO SCH ×2 (08:28→17:48)
[2017-05-05] MEDS: PHENYTOIN EXTENDED RELEASE 100 MG CAPSULE PO SCH ×3 (08:28→17:48)
[2017-05-05 08:31] LABS: BASOPHILS % (AUTO) 0.3 % (0.0-2.0); EOSINOPHILS # (AUTO) 0.2 /CMM (0.0-0.7); EOSINOPHILS % (AUTO) 2.3 % (0.0-6.0); HEMATOCRIT 34 % (33-45); HEMOGLOBIN 11.2 g/dL (11.5-14.8); LYMPHOCYTES # (AUTO) 0.5 /CMM (0.8-4.8); MEAN CORPUSCULAR HEMOGLOBIN 31 PG (26.0-33.0); MEAN CORPUSCULAR HGB CONC 33 g/dl (31.0-36.0); MEAN CORPUSCULAR VOLUME 94 fL (82-100); MONOCYTES % (AUTO) 10.4 % (2.0-12.0); NEUTROPHILS # (AUTO) 7.8 /CMM (1.8-8.9); PLATELET COUNT (AUTO) 251 /CMM (150-450); RDW COEFFICIENT OF VARIATION 16.9 (11.5-15.0); RED BLOOD CELL COUNT(AUTO) 3.63 MIL/uL (4.0-5.2); WHITE BLOOD COUNT (AUTO) 9.6 K/uL (4.3-11.0)
[2017-05-05 09:08] LABS: ALANINE AMINOTRANSFERASE 41 U/L (12-78); ALBUMIN 1.6 g/dL (3.4-5.0); ALKALINE PHOSPHATASE 66 U/L (46-116); ASPARTATE AMINOTRANSFERASE 26 U/L (15-37); BILIRUBIN,TOTAL 0.2 mg/dL (0.2-1.0); CALCIUM, SERUM 7.9 mg/dL (8.5-10.1); CARBON DIOXIDE 22 mmol/L (21-32); CHLORIDE 114 mmol/L (98-107); CREATININE 1.3 mg/dL (0.6-1.3); GLUCOSE 149 mg/dL (74-106); MAGNESIUM 1.9 mg/dL (1.8-2.4); PHOSPHORUS 2.4 mg/dL (2.5-4.9); POTASSIUM 3.5 mmol/L (3.5-5.1); SODIUM SERUM 146 mmol/L (136-145); TOTAL PROTEIN, SERUM 5.7 g/dL (6.4-8.2); UREA NITROGEN, BLOOD 12 mg/dL (7-18)
[2017-05-05] MEDS: PANTOPRAZOLE 40 MG TABLET.DR PO SCH (10:54)
[2017-05-05] MEDS ORDERED: ETOMIDATE 2 MG/ML VIAL ONE (11:04)
[2017-05-05] MEDS ORDERED: K PHOS NEUTRAL 250 MG TABLET PO ONE (14:00)
[2017-05-05 14:12] VITALS: BP 136/74
--- NOTE | 2017-05-05 14:12 | NUR ---
KAROLINA NOTES PT OUT FOR SX BETWEEN THE HOURS OF [id number] Addendum: 05/05/17 at 1413 by THIERRY PAEZ Amended: Links added.
--- NOTE | 2017-05-05 19:02 | NUR ---
RN CLOSING NOTES PT IN BED SLEEPING. NO S/S OF DISTRESS/SOB. PT IS A/OX2 SLIGHTLY CONFUSED, CITIZEN OF [place] AND [place] SPEAKING. PT IS S/P COLONOSCOPY IN AM. D/C ORDERS PLACED BY HOME APPLIANCE TECHNICIAN, AWAITING PLACEMENT IN ACUTE REHAB. SAFETY MEASURES IN PLACE, CALL LIGHT WITHIN REACH. BED LOWERED TO LOWEST POSITION AND SIDE RAILS RAISED X2.
--- NOTE | 2017-05-05 19:10 | NUR ---
RN NOTES RECEIVED PT AWAKE, HOB ELEVATED, ON ROOM AIR AND TOLERATED WELL. DENIES ANY PAIN AND DISCOMFORT. nO IV ACCESS AT THIS TIME, WILL START NEW IV LINE. URINARY CATHETER INTACT WITH CLEAR YELLOW URINE OUTPUT NOTED. SAFETY MEASURES AND FALL PRECAUTION OBSERVED WILL CONTINUE TO ONITOR PT. Addendum: 05/06/17 at 0422 by BERNABE REYEZ RN WRONG ENTRY, NOTES FOR ANOTHER PT.
--- NOTE | 2017-05-05 19:15 | NUR ---
RN NOTES RECEIVED PT AWAKE, HOB ELEVATED, ON 2LPM O2 WITH GOOD SATURATION. PT AWAKE, ALERT AND ORIENTED X2.ON PUREED DIET WITH THIN LIQUIDS AND TOLERATED WELL. DENIES ANY PAIN AND DISCOMFORT. MIDLINE ON RIGHT UPPER ARM PATENT AND INTACT. KEPT PT CLEAN AND DRY, WILL REPOSITION Q2H. SAFTY MEASURES IN PLACED. WILL CONTINUE TO MONITOR PT.
[2017-05-05 20:00] VITALS: BP_SYST 127; BP_SYST 136; BP_DIAS 67; BP_DIAS 74
[2017-05-05] MEDS: ATORVASTATIN 40 MG TABLET PO SCH (21:37)
[2017-05-05] MEDS: MEMANTINE HCL 5 MG TABLET PO SCH (21:38)
[2017-05-05] MEDS: GABAPENTIN 100 MG CAPSULE PO SCH (21:38)
[2017-05-06 04:00] VITALS: BP 139/67
[2017-05-06] MEDS: PIPERACILLIN /TAZOBACTAM 2.25 G in IV D5W 50 ML IV SCH ×2 (05:11→12:44)
--- NOTE | 2017-05-06 06:37 | NUR ---
RN NOTES PT ASLEEP, HOB ELEVATED, ON 2LPM O2 VIA NC WITH GOOD SATURATION. VITAL SIGNS STABLE. NO COMPLAIN OF PAIN. NO EPISODE OF NAUSEA AND VOMITING. TOLERATING CURRENT DIET. NO EPISODE OF BLACK TARRY STOOL. TURNED AND REPOSITIONED Q2H. ALL NEEDS ATTENDED. FALL PRECAUTION OBSERVED. WILL ENDORSE TO MORNING RN FOR CONTINUITY OF CARE.
--- NOTE | 2017-05-06 07:15 | NUR ---
MS RN NOTES RECVD RN NOTES FROM ROCHELLE RN. AAO3. HOB ELEVATED. FEEDER. NO SOB96% RA. RENAL FAILURE ZOSYN FOR UTI. POS URINE CULTURES FROM 04/29-. COLONOSCOPY YESTERDAY WITH HEMORRHOID. POSTASSIUM 3.5 PHARMACY TO DETERMINE DOSING. BED IN LOW LOCKED POSITION. SIDE RAILS X 2. CALL LIGHT IN REACH. WILL CONTINUE TO MONITOR.
[2017-05-06 08:00] VITALS: BP 148/69
[2017-05-06] MEDS: POLYVINYL ALCOHOL 15 ML BOTTLE EACHEYE SCH ×2 (08:51→16:14)
[2017-05-06] MEDS: LACTOBACILLUS RHAMNOSUS GG 1 EACH CAP.SPRINK PO SCH ×2 (08:52→16:13)
[2017-05-06] MEDS: PYRIDOXINE PO SCH ×2 (08:52→16:14)
[2017-05-06] MEDS: PANTOPRAZOLE 40 MG TABLET.DR PO SCH (08:52)
[2017-05-06] MEDS: PHENYTOIN EXTENDED RELEASE 100 MG CAPSULE PO SCH ×3 (08:52→16:13)
[2017-05-06] MEDS: CYANOCOBALAMIN PO SCH ×2 (08:52→16:14)
[2017-05-06] MEDS: BISACODYL (5 MG) 5 MG TABLET.DR PO SCH (08:52)
[2017-05-06] MEDS: [UNRECOGNIZED DRUG - OTHER] PO SCH ×2 (08:52→16:14)
[2017-05-06 16:00] VITALS: BP 136/70
--- NOTE | 2017-05-06 18:11 | NUR ---
MS RN CLOSING NOTES PT DOING WELL. GOOD APPETITE. IV INTACT. SON AT BEDSIDE FEEDING HER. HAS BEEN REFUSING PT WHICH HAS CAUSED DELAY IN SNF PLANNING. SON HAS BEEN TRYING TO CONVINCE PT. AFEBRILE. BED IN LOW LOCKED POSITION SIDE RAILS X 2. CALL LIGHT IN REACH. WILL ENDORSE TO ROCHELLE RN.
[2017-05-06] MEDS: GABAPENTIN 100 MG CAPSULE PO SCH (21:06)
[2017-05-06] MEDS: MEMANTINE HCL 5 MG TABLET PO SCH (21:06)
[2017-05-06] MEDS: ATORVASTATIN 40 MG TABLET PO SCH (21:06)
[2017-05-06 21:26] VITALS: BP 120/73
[2017-05-07 05:18] VITALS: BP 130/76
--- NOTE | 2017-05-07 06:51 | NUR ---
RN CLOSING NOTES PATIENT IS AWAKE, ALERT ET ORIENTED2. RESPIRATION EVEN ET UNLABORED. CONFUSED AT TIMES. DOMINICAN SPEAKING. NO S/S OF DISTRESS/SOB. DOMINICAN SPEAKING. D/C PLAN IN ACUTE REHAB. ADMINSTERED ALL MEDS ORDERED. ALL SAFETY MEASURES IN PLACE, CALL LIGHT WITHIN REACH. BED LOWERED TO LOWEST POSITION AND SIDE RAILS RAISED X2. ALL NEEDS ATTENDED. WILL CONTINUE PLAN OF CARE.
--- NOTE | 2017-05-07 07:12 | NUR ---
RN INITIAL NOTES: REC'D PT AWAKE ON BED, NOT IN ANY DISTRESS, A/O X 1. ON O2 AT 2LPM/NC, NO SOB. HAS ASHU MIDLINE, SL, PATENT & INTACT W/ NO S/SX OF INFECTION/INFILTRATION NOTED. PROVIDED COMFORT & SAFETY MEASURES. BED KEPT LOW & IN LOCKED POS. CALL LIGHT PLACED W/IN REACH. WILL CONTINUE TO MONITOR AND ATTEND PT NEEDS.
[2017-05-07 08:00] VITALS: BP 106/45
[2017-05-07] MEDS: LACTOBACILLUS RHAMNOSUS GG 1 EACH CAP.SPRINK PO SCH (09:04)
[2017-05-07] MEDS: CYANOCOBALAMIN PO SCH (09:04)
[2017-05-07] MEDS: [UNRECOGNIZED DRUG - OTHER] PO SCH (09:04)
[2017-05-07] MEDS: PANTOPRAZOLE 40 MG TABLET.DR PO SCH (09:04)
[2017-05-07] MEDS: PYRIDOXINE PO SCH (09:04)
[2017-05-07] MEDS: PHENYTOIN EXTENDED RELEASE 100 MG CAPSULE PO SCH ×2 (09:04→13:31)
[2017-05-07] MEDS: BISACODYL (5 MG) 5 MG TABLET.DR PO SCH (09:05)
[2017-05-07] MEDS: Z GUARD REMEDY 2 OZ OINT TP PRN (09:05)
[2017-05-07] MEDS: POLYVINYL ALCOHOL 15 ML BOTTLE EACHEYE SCH (09:05)
--- NOTE | 2017-05-07 15:37 | NUR ---
DIFFERENTIAL REPAIRER NOTES: PT DC'D TO [facility] ORDERED. MANDO REHAB/PRE VOCATIONAL COUNSELOR AND SON IS AWARE. DC DOCUMENTS PROVIDED TO RAQUEL EMT. REPORT GIVEN TO KAROLINA ROQUE. WOUND PHOTOS TAKEN AND PLACED IN CHART. IV ACCESS REMOVED, PRESSURE DRESSING APPLIED, NO SIGN OF INFECTION NOTED. NO CONCERNS IDENTIFIED AT THIS TIME. PT LEFT FACILITY IN STABLE CONDITION VIA GURNEY ACCOMPANIED BY DRILLER AND BROACHER. ALL BELONGINGS SENT W/ PT.
== END 2017-05-07 15:40 | DRG 871 ==
LOC: ER 09:41 → TELE-TD 15:28 → TELE1 21:31 → MEDSG1 05-01 10:46
PROVIDERS: ADMIT Internal Medicine; ATTEND Internal Medicine
PROC: 30233N1 Transfusion of Nonautologous Red Blood Cells into Peripheral Vein, Percutaneous Approach (ICD-10-PCS; principal; 2017-04-30)
PROC: 05H533Z Insertion of Infusion Device into Right Subclavian Vein, Percutaneous Approach (ICD-10-PCS; 2017-04-30)
PROC: B546ZZA Ultrasonography of Right Subclavian Vein, Guidance (ICD-10-PCS; 2017-04-30)
PROC: 0DD38ZX Extraction of Lower Esophagus, Via Natural or Artificial Opening Endoscopic, Diagnostic (ICD-10-PCS; 2017-05-01)
PROC: 0DD78ZX Extraction of Stomach, Pylorus, Via Natural or Artificial Opening Endoscopic, Diagnostic (ICD-10-PCS; 2017-05-01)
PROC: 0DB68ZZ Excision of Stomach, Via Natural or Artificial Opening Endoscopic (ICD-10-PCS; 2017-05-01)
PROC: 0DDE8ZX Extraction of Large Intestine, Via Natural or Artificial Opening Endoscopic, Diagnostic (ICD-10-PCS; 2017-05-05)
DX: A41.9 Sepsis, unspecified organism (principal); N17.0 Acute kidney failure with tubular necrosis; I21.A1 Myocardial infarction type 2; E43 Unspecified severe protein-calorie malnutrition; G92 Toxic encephalopathy; I50.23 Acute on chronic systolic (congestive) heart failure; E87.2 Acidosis; D62 Acute posthemorrhagic anemia; E83.39 Other disorders of phosphorus metabolism; E86.0 Dehydration; I69.354 Hemiplegia and hemiparesis following cerebral infarction affecting left non-dominant side; N39.0 Urinary tract infection, site not specified; I42.9 Cardiomyopathy, unspecified; E83.42 Hypomagnesemia; E87.5 Hyperkalemia; Z79.899 Other long term (current) drug therapy; E78.5 Hyperlipidemia, unspecified; I25.10 Atherosclerotic heart disease of native coronary artery without angina pectoris; I10 Essential (primary) hypertension; R65.20 Severe sepsis without septic shock; E11.9 Type 2 diabetes mellitus without complications; F03.90 Unspecified dementia, unspecified severity, without behavioral disturbance, psychotic disturbance, mood disturbance, and anxiety; G40.909 Epilepsy, unspecified, not intractable, without status epilepticus; G47.00 Insomnia, unspecified; I11.0 Hypertensive heart disease with heart failure; I67.2 Cerebral atherosclerosis; K29.70 Gastritis, unspecified, without bleeding; K20.9 Esophagitis, unspecified; K44.9 Diaphragmatic hernia without obstruction or gangrene; K31.7 Polyp of stomach and duodenum; K57.90 Diverticulosis of intestine, part unspecified, without perforation or abscess without bleeding; I25.2 Old myocardial infarction; K64.8 Other hemorrhoids
CPT/HCPCS: 36415; 36569; 70450-TC; 71010-TC; 80048-TC; 80053-TC; 80061-TC; 80076-TC; 80202-TC; 81000-TC; 82272-TC; 82306; 82550-TC; 82553-TC; 82570-TC; 82728-TC; 82962-TC; 83540-TC; 83605-TC; 83690-TC; 83735-TC; 83970; 84100-TC; 84155; 84155-TC; 84165; 84300-TC; 84439-TC; 84443-TC; 84484-TC; 85025-TC; 85027-TC; 85730-TC; 86850-TC; 86921-TC; 87040-TC; 87081-TC; 87086-TC; 87186-TC; 88305-TC; 88313-TC; 88342; 93307-TC; 97110-TC; 97530-TC; A4216; A4217; A4606; A6253; C9113; J1815; J2370; J2543; J2597; J2704; J3370; J3475; J3490; J7030; J7050; J7060; P9016-BL; Z7610